=== PATIENT | male | born 1940 | race Caucasian/White ===

== ENCOUNTER → 2020-08-18 07:23 | Outpatient (CLI) | payer MEDICARE, SELFPAY ==
--- NOTE | ~2020-08-18 | MR_ITS ---
EXAMINATION: MR brain/brain stem wo con DATE: 08/18/2020 08:10 INDICATION: Memory loss. TECHNIQUE: Magnetic resonance imaging (MRI) of the brain and brainstem was performed without intraven ous contrast. Sequences included sagittal and axial T1-weighted FSE, axial diffusion-weighted FS EPI, axial T2*-weighted GRE, axial T2-weighted FLAIR Propeller, and axial T2-weighted Propeller. Apparent diffusion coefficient (ADC) maps were created. COMPARISON: None. FINDINGS: There are scattered areas of nonspecific increased T2-weighted signal intensity in the cere bral white matter, which is within normal limits for the patient's age. There is no intracranial hemo rrhage, acute infarction, or abnormal intracranial mass lesion. The ventricles are normal in size. Th ere is mild mucosal thickening in the ethmoid sinuses. The mastoid air cells are normal. There are li valdemar changes of ocular lens replacement surgeries. IMPRESSION: 1. Normal aging brain. Reviewed, dictated and finalized at location A. DEVELOPER CONTRACT IMPRESSION: 1. Normal aging brain.
== END ==
PROVIDERS: PCP Internal Medicine; Visit Provider Psychiatry & Neurology Neurology
DX: R41.3 Other amnesia (principal)
CPT/HCPCS: 70551

== ENCOUNTER 2022-05-22 10:33 | Outpatient (CLI) | payer MEDICARE, SELFPAY ==
--- NOTE | ~2022-05-22 | XR_ITS ---
XR knee RT 3V 05/22/2022 11:22 Indication: Chronic knee pain Procedure: 3 views right knee Comparison: No prior studies for comparison. Findings: There is moderate-severe tricompartment osteoarthritis of the right knee, most advanced in the medial compartment. No significant joint effusion. No acute fracture or traumatic malalignment. Impression: 1: Moderate-severe tricompartment osteoarthritis of the right knee. Reviewed, dictated and finalized at location A. Impression: 1: Moderate-severe tricompartment osteoarthritis of the right knee.
--- NOTE | ~2022-05-22 | XR_ITS ---
XR knee LT 3V 05/22/2022 11:22 Indication: Chronic left knee pain Procedure: 3 views left knee Comparison: No prior studies for comparison. Findings: There is severe tricompartment osteoarthritis of the left knee, most advanced in the medial compartment. There is an osteochondroma originating from the proximal aspect of the tibia posteriorl y. No significant joint effusion. Impression: 1: Severe tricompartment osteoarthritis of the left knee. 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 Reviewed, dictated and finalized at location A. Impression: 1: Severe tricompartment osteoarthritis of the left knee. 2: Exophytic osteochondroma originating from the posterior margin of the proxi mal tibial metaphysis.
--- NOTE | ~2022-05-22 | XR_ITS ---
XR sternum min 2V DATE: 05/22/2022 11:22 INDICATION: Chronic sternal pain TECHNIQUE: Lateral and oblique views COMPARISON: 01/17/2019 2 view chest FINDINGS: No sternal fracture or bone destruction is evident. Osteopenia. IMPRESSION: Osteopenia Reviewed, dictated and finalized at location B. IMPRESSION: Osteopenia
== END 2022-05-22 10:34 | disposition home or self-care (01) ==
LOC: ANHIMG 10:44
PROVIDERS: PCP Internal Medicine; Visit Provider Internal Medicine
DX: R07.89 Other chest pain (principal); M85.88 Other specified disorders of bone density and structure, other site; M17.0 Bilateral primary osteoarthritis of knee
CPT/HCPCS: 71120; 73562

== ENCOUNTER 2022-08-13 11:37 | Emergency (ER) | payer MEDICARE, SELFPAY ==
--- NOTE | ~2022-08-13 | XR_ITS ---
EXAMINATION: XR chest 2V DATE: 08/13/2022 12:30 INDICATION: Agitation. Bilateral lower limb pain. TECHNIQUE: PA and lateral views of the chest were obtained. COMPARISON: Chest radiograph dated 01/17/2019 FINDINGS: Stable appearance of eventration along the anterior aspect of both the left and right hemidiaphragm. Stable appearance of chronic linear discoid atelectasis/scarring in the right lower and left mid and lower lung zones. No new airspace opacities, pulmonary edema, pleural effusion or pneumothorax. Heart size is normal. Chronic mild anterior wedging of a few mid and lower thoracic vertebral bodies. A fe w old left rib fractures. IMPRESSION: 1. Stable appearance of mild scattered linear discoid atelectasis/scarring in the left mid and bilate ral lower lung zones. Reviewed, dictated and finalized at location A. S SERVICE ROUTE MANAGER IMPRESSION: 1. Stable appearance of mild scattered linear discoid atelectasis/scarring in t he left mid and bilateral lower lung zones.
[2022-08-13 11:37] VITALS: BP 143/82; PULSE 67; RESP 17; TEMP 37.2; O2SAT 97
[2022-08-13] MEDS: LORazepam INJ (*CRX) 2 MG/ML VIAL 0.5 MG IV PUSH (12:51)
[2022-08-13 12:59] LABS: Basophils Percent Auto 0.5 % (0.2-1.2); Eosinophils Absolute Auto 0.2 K/mm3 (0-0.3); Eosinophils Percent Auto 2.9 % (0-4.4); Hematocrit 43.7 % (42.0-52.0); Hemoglobin 14.5 g/dL (14.0-18.0); Immature Granulocyte Absolute 0.02 K/mm3 (0.00-0.031); Immature Granulocyte Percent A 0.4 % (0-0.5); Lymphocytes Absolute Auto 1.32 K/mm3 (0.9-3.2); Mean Corpuscular HGB Conc 33.2 g/dl (32-36); Mean Corpuscular Volume 99.3 fl (80-100); Mean Platelet Volume 8.8 fl (7.4-10.4); Monocytes Absolute Auto 0.6 K/mm3 (0.1-0.6); Monocytes Percent Auto 10.4 % (2.6-8.5); Neutrophils Absolute Auto 3.4 K/mm3 (1.3-6.7); Neutrophils Percent Auto 61.8 % (45.5-73.1); Platelet Count Result 181 k/mm3 (150-375); Red Cell Distribution Width 12.1 % (11.5-14.5); White Blood Count 5.5 K/mm3 (4.5-10.0)
[2022-08-13 13:01] LABS: Add Urine Microscopic? YES; Appearance Urine Clear (Clear); Bilirubin Urine Negative (Negative); Blood Urine Negative (Negative); Color Urine Light Yellow (Yellow); Glucose Urine UA Negative (Negative); Ketones Urine Trace mg/dL (Negative); Leukocyte Esterase Ur Trace LEU/UL (Negative); Nitrate Urine Negative (Negative); Protein Urine Negative (Negative); Specific Grav Ur >= 1.030 (1.001-1.035); Urobilinogen Urine 0.2 mg/dL (<2.0)
[2022-08-13 13:08] LABS: Amphetamine Screen Urine Negative (Negative); Barbiturate Screen Urine Negative (Negative); Benzodiazepines Screen Urine Positive (Negative); Cannabinoid Screen Urine Negative (Negative); Cocaine Screen Urine Negative (Negative); Methadone Screen Urine Negative (Negative); Opiate Screen Urine Negative (Negative); Phencyclidine Screen Urine Negative (Negative)
[2022-08-13 13:12] LABS: Mucus Urine Rare /lpf; Squamous Epithelial Cell Urine Rare /hpf (Few)
[2022-08-13 13:12] LABS: Alanine Aminotransferase 38 U/L (6-50); Albumin Level 3.9 g/dL (3.5-5.1); Alkaline Phosphatase 96 U/L (38-126); Anion Gap 5 mmol/L (8-16); Aspartate Amino Transferase 39 U/L (17-59); Bilirubin,Total 0.8 mg/dL (0.2-1.3); Blood Urea Nitrogen 22 mg/dL (9-20); Calcium 8.7 mg/dL (8.4-10.2); Carbon Dioxide 32 mmol/L (22-30); Chloride 102 mmol/L (98-107); Estimated CRCL calculation 52 ml/min; Estimated Glomerular Filt Rate > 60; Glucose 84 mg/dL (65-110); Potassium 3.8 mmol/L (3.4-5.0); Sodium 139 mmol/L (137-145)
[2022-08-13 13:14] LABS: Ethanol < 10 mg/dL (<10)
--- NOTE | 2022-08-13 13:27 | ED.GENADULT ---
HPI - General Adult General Chief complaint: Unspecified Stated complaint: VIOLENT WITH STAFF AND YELLING Time Seen by Provider: 08/13/22 11:58 History of Present Illness HPI narrative: Patient is an 82-year-old male who presents ER with agitation. He was at his new senior living that he was recently put in last week. Apparently he was shouting and had waived his pain and frustration. Unknown if he struck anybody. They recently started him on some Xanax to help control some agitation. Patient has dementia and cannot verbalize why he is here. Related Data Home Medications Medication Instructions Recorded Confirmed vit C 250 mg-vit E 90 mg-zinc 40 1 tablet PO BID 07/26/20 06/21/22 mg-copper 1 [id number]-[id number] capsule (PreserVision AREDS-2) cholecalciferol (vitamin D3) 25 25 mcg PO DAILY 11/02/21 06/21/22 mcg (1,000 unit) capsule mecobalamin (vitamin B12) 1,000 1,000 mcg sublingual .MWF 05/15/22 06/21/22 mcg disintegrating tablet,sublingual Allergies Allergy/AdvReac Type Severity Reaction Status Date / Time No Known Allergies Allergy Verified 06/19/22 14:01 Review of Systems Review of Systems: ROS unobtainable: Yes unobtainable due to mental status PMFSH Past Medical History Medical History (Updated 08/13/22 @ 15:32 by Walter Weinstein MD) Anxiety Depression Dyslipidemia Essential (primary) hypertension GERD (gastroesophageal reflux disease) 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, 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 Surgical History Surgical History H/O hernia repair Surgery done in December of 2018 Family History Family History Mother Family history of dementia Family history of malignant neoplasm of breast Father Family history of malignant neoplasm of urinary bladder Family history of heart disease in male family member before age 55 Family history of cardiovascular disease Family history of congestive heart failure Social History Social History Smoking packs per day: 0.5 Smoking cigarettes per day: 10.0 Years smoked: 5 Smoking pack-years: 2.50 Smoking status: Former smoker Smoking end date: 09/01/78 Alcohol intake: never Substance use: never Substance use type: does not use Lack of Transportation: No Lack of Food: Never True Current Housing: I Have Housing Concerned About Future Housing: No Difficulty Paying Gas/Electric Bills: No Difficulty Paying for Meds: No Currently Unemployed: No Education: Bachelor's Degree Difficulty w/ Childcare or Family Care: No Exam Narrative: GENERAL: Well-appearing, well-nourished, and in no acute distress. HEAD: Normocephalic, atraumatic. ENT: Mucous membranes moist. CHEST: Clear to auscultation.? No respiratory distress. HEART: Regular rate and rhythm.? Normal peripheral pulses. ABDOMEN: Soft, nontender, nondistended. EXTREMITIES: Normal range of motion.? No edema. SKIN: Warm, dry, no rash. NEURO: Alert and oriented x1-2. PSYCH: Normal mood and affect. Course Course Emergency Course: Informed brightly of results. Will give small amount of Ativan prescription for the care center. Patient will be getting a new PCP on 08/19/2022 and they will likely start a different mood stabilizer at that time if needed. Vital Signs Vital signs: Vital Signs Temperature 98.9 F 08/13/22 11:37 Pulse Rate 67 08/13/22 11:37 Respiratory Rate 17 08/13/22 11:37 Blood Pressure 143/82 H 08/13/22 11:37 Pulse Oximetry 97 08/13/22 11:37 Oxygen Delivery Room Air 08/13/22 11:37 Temperature 98.9 F 08/13/22 11:37 Pulse Rate 67 08/13/22 11:37 Respiratory Rate 17 08/13/22 11:37 Blood Pressure 143/82 H 08/13/22 11:37 Pulse Oximetry 97 08/13/22 11:37 Oxygen Deli
== END 2022-08-13 15:58 ==
PROVIDERS: Emergency Provider Emergency Medicine; PCP Internal Medicine
DX: G30.1 Alzheimer's disease with late onset (principal); F02.811 Dementia in other diseases classified elsewhere, unspecified severity, with agitation; E11.22 Type 2 diabetes mellitus with diabetic chronic kidney disease; I12.9 Hypertensive chronic kidney disease with stage 1 through stage 4 chronic kidney disease, or unspecified chronic kidney disease; N18.1 Chronic kidney disease, stage 1; E78.5 Hyperlipidemia, unspecified; F41.9 Anxiety disorder, unspecified; F32.A Depression, unspecified; M17.0 Bilateral primary osteoarthritis of knee; Z87.891 Personal history of nicotine dependence; R82.998 Other abnormal findings in urine; Z79.899 Other long term (current) drug therapy
CPT/HCPCS: 36415; 71046; 80053; 80307; 81001; 84443; 85025; 87086; 96374; 99284; J2060

== ENCOUNTER 2022-10-15 09:58 | Emergency (ER) | payer MEDICARE, SELFPAY ==
[2022-10-15] VITALS (12 sets, daily range): BP systolic 98–123; BP diastolic 59–70; PULSE 61–77; RESP 14–20; TEMP 36.6; O2SAT 94–100
--- NOTE | ~2022-10-15 | XR_ITS ---
EXAMINATION: XR chest 1V DATE: 10/15/2022 11:05 INDICATION: Weakness. Fall. TECHNIQUE: A single frontal view of the chest was obtained. COMPARISON: Chest 2 views 08/13/2022, CT abdomen and pelvis 01/15/2019 FINDINGS: The lung volumes are small. There is mild atelectasis at the lung bases. No pleural effusio n or pneumothorax. Calcified right hilar and mediastinal lymph nodes are consistent with old granulom atous disease. The heart size is normal. IMPRESSION: 1. Small lung volumes with mild atelectasis at the lung bases. Reviewed, dictated and finalized at location A. AL MARKETING MANAGER
--- NOTE | ~2022-10-15 | CT_ITS ---
EXAMINATION: CT brain wo con INDICATION: Transient alteration of awareness COMPARISON: MRI, 08/18/2020 TECHNIQUE: Standard unenhanced head CT. The dose-length product (DLP) was 681.00 mGy-cm. The mA was a djusted according to patient size. Iterative reconstruction technique was employed. FINDINGS: There is no acute intraparenchymal hemorrhage. No evidence of mass lesion. No evidence of a cute infarction. There is moderate periventricular and subcortical hypodensity probably related to sm all vessel ischemic disease. There is moderate prominence of the sulci and ventricles related to cere bral atrophy. Intracranial calcified cerebral atherosclerosis is noted. There are no extra-axial justin ections. There is no mass effect or midline shift. Changes in the globes are likely from ocular lens surgery. The visualized sinuses and mastoid air cells are well aerated. IMPRESSION: 1. No acute intracranial abnormality. 2. Age related findings. Reviewed, dictated and finalized at location L. TS MANAGEMENT INTERN
--- NOTE | ~2022-10-15 | CT_ITS ---
EXAMINATION: CT cervical spine wo con DATE: 10/15/2022 11:15 INDICATION: Transient alteration of awareness TECHNIQUE: Computed tomography (CT) of the cervical spine was performed without intravenous contrast. The dose-length product (DLP) was 466.36 mGy-cm. Automated exposure control and iterative reconstruc tion technique were employed. COMPARISON: None FINDINGS: There is 1 mm of anterolisthesis of C6 on C7. The vertebral body heights are maintained. Th ere is severe loss of intervertebral disc space height at C6-7. There is moderate loss of interverteb ral disc space height at C4-5 and C5-6. The odontoid process is intact. There is no fracture. There i s moderate to severe multilevel facet and uncovertebral joint osteoarthritis. IMPRESSION: 1. Moderate to severe cervical spondylosis without acute findings. Reviewed, dictated and finalized at location L. UTING SYSTEMS MECHANIC
--- NOTE | ~2022-10-15 | XR_ITS ---
EXAMINATION: XR hip RT 2V w AP pelvis DATE: 10/15/2022 11:05 INDICATION: Fall. TECHNIQUE: An anteroposterior view of the pelvis and 2 views of right hip were obtained. COMPARISON: None. FINDINGS: Bone alignment is normal. No fracture. There is moderate lumbar spondylosis. There is mild osteoarthritis of the hips. IMPRESSION: 1. Mild osteoarthritis of the hips. Reviewed, dictated and finalized at location A. PLATE PLYWOOD PRESS FEEDER
--- NOTE | 2022-10-15 10:11 | ECG_ITS ---
Measurements Intervals [place] Rate: 70 P: -24 [place]: 120 QRS: 1 QRSD: 104 T: 63 QT: 318 QTc: 343 Interpretive Statements SINUS RHYTHM NONSPECIFIC T-WAVE ABNORMALITY BASELINE ARTIFACT COMPARED TO ECG 01/08/2019 00:04:07 T-WAVE ABNORMALITY NOW PRESENT Electronically Signed On 10-15-2022 16:23:09 UNIT REACTOR OPERATOR by Corie Hummel M.D.
--- NOTE | 2022-10-15 10:42 | ED.RECABL ---
HPI - Recheck/Abnormal Lab/Rx General Chief Complaint: Recheck/Abnormal Lab/Rx Stated Complaint: low bp Time Seen by Provider: 10/15/22 10:11 Source: patient, EMS and RN notes reviewed Mode of arrival: EMS Limitations: dementia History of Present Illness HPI narrative: This is a 82 year old male that presents to the ER for generalized weakness. Reportedly was found on the floor at his nursing facility. They took his blood pressure and noted it was low so called EMS to have him evaluated. He has history of dementia and is not able to provide any further history. He has no focal complaints. Related Data Home Medications Medication Instructions Recorded Confirmed vit C 250 mg-vit E 90 mg-zinc 40 1 tablet PO BID 07/26/20 06/21/22 mg-copper 1 [id number]-[id number] capsule (PreserVision AREDS-2) cholecalciferol (vitamin D3) 25 25 mcg PO DAILY 11/02/21 06/21/22 mcg (1,000 unit) capsule mecobalamin (vitamin B12) 1,000 1,000 mcg sublingual .MWF 05/15/22 06/21/22 mcg disintegrating tablet,sublingual Allergies Allergy/AdvReac Type Severity Reaction Status Date / Time No Known Allergies Allergy Verified 06/19/22 14:01 Review of Systems Review of Systems: ROS unobtainable: Yes unobtainable due to medical condition (dementia) [facility] Past Medical History Medical History (Updated 10/15/22 @ 14:16 by Monae Echevarria PA-C) Anxiety Depression Dyslipidemia Essential (primary) hypertension GERD (gastroesophageal reflux disease) 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, 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 Surgical History Surgical History H/O hernia repair Surgery done in December of 2018 Family History Family History Mother Family history of dementia Family history of malignant neoplasm of breast Father Family history of malignant neoplasm of urinary bladder Family history of heart disease in male family member before age 55 Family history of cardiovascular disease Family history of congestive heart failure Social History Social History Smoking packs per day: 0.5 Smoking cigarettes per day: 10.0 Years smoked: 5 Smoking pack-years: 2.50 Smoking status: Former smoker Smoking end date: 09/01/78 Alcohol intake: never Substance use: never Substance use type: does not use Lack of Transportation: No Lack of Food: Never True Current Housing: I Have Housing Concerned About Future Housing: No Difficulty Paying Gas/Electric Bills: No Difficulty Paying for Meds: No Currently Unemployed: No Education: Bachelor's Degree Difficulty w/ Childcare or Family Care: No Exam Narrative: GENERAL: Elderly, well-nourished, and in no acute distress. HEAD: Normocephalic, atraumatic. EYES: PERRLA and EOMI. ENT: Nares clear, no rhinorrhea or epistaxis. Mucous membranes moist. Oropharynx without tonsillar hypertrophy exudate or other lesions. Bilateral TMs pearly stoner non-bulging NECK: Supple. No adenopathy or masses. CHEST: Clear to auscultation. No respiratory distress. No wheezes rales or rhonchi HEART: Regular rate and rhythm. No murmur heard. Normal peripheral pulses. ABDOMEN: Soft, nontender, nondistended, normal active bowel sounds. BACK: No midline spinal tenderness EXTREMITIES: Normal range of motion. No obvious deformity. 1+ pitting edema to the bilateral lower extremities without overlying erythema SKIN: Warm, dry, no rash. NEURO: No focal deficits. Alert and oriented x1. PSYCH: Normal mood and affect Course Course Emergency Course: Patient and family updated on work-up. I did recommend admission for further management of dehydration and UTI. Patient's daughter would prefer he be discharged back to facility. She feels this will be best for him mentally a
[2022-10-15 10:55] LABS: Basophils Percent Auto 0.4 % (0.2-1.2); Eosinophils Absolute Auto 0.1 K/mm3 (0-0.3); Eosinophils Percent Auto 3.1 % (0-4.4); Hematocrit 39.2 % (42.0-52.0); Hemoglobin 13.1 g/dL (14.0-18.0); Immature Granulocyte Absolute 0.02 K/mm3 (0.00-0.031); Immature Granulocyte Percent A 0.4 % (0-0.5); Immature Platelet Fraction Pct 4.2 % (0.9-11.2); Lymphocytes Absolute Auto 1.07 K/mm3 (0.9-3.2); Mean Corpuscular HGB Conc 33.4 g/dl (32-36); Mean Corpuscular Hemoglobin 33.5 pg (26-34); Mean Corpuscular Volume 100.3 fl (80-100); Mean Platelet Volume 10.5 fl (7.4-10.4); Monocytes Absolute Auto 0.6 K/mm3 (0.1-0.6); Monocytes Percent Auto 12.6 % (2.6-8.5); Neutrophils Absolute Auto 2.7 K/mm3 (1.3-6.7); Neutrophils Percent Auto 59.5 % (45.5-73.1); Platelet Count Result 96 k/mm3 (150-375); Red Blood Count 3.91 M/mm3 (4.6-6.20); White Blood Count 4.5 K/mm3 (4.5-10.0)
[2022-10-15 11:01] LABS: Creatine Kinase 44 U/L (55-170)
[2022-10-15 11:02] LABS: INR 1.2; Prothrombin Time 14.6 Seconds (11.1-14.7)
[2022-10-15 11:03] LABS: Alanine Aminotransferase 38 U/L (6-50); Albumin Level 2.9 g/dL (3.5-5.1); Alkaline Phosphatase 79 U/L (38-126); Anion Gap 3 mmol/L (8-16); Aspartate Amino Transferase 43 U/L (17-59); Bilirubin,Total 0.9 mg/dL (0.2-1.3); Blood Urea Nitrogen 37 mg/dL (9-20); Calcium 7.7 mg/dL (8.4-10.2); Carbon Dioxide 30 mmol/L (22-30); Chloride 108 mmol/L (98-107); Estimated Glomerular Filt Rate 53; Glucose 100 mg/dL (65-110); Partial Thromboplastin Time 24.8 SECONDS (22.3-36.8); Potassium 3.4 mmol/L (3.4-5.0); Sodium 141 mmol/L (137-145)
[2022-10-15 11:29] LABS: Influenza A QL RT-PCR Negative (Negative); Influenza B QL RT-PCR Negative (Negative); SARS-CoV-2 RNA PCR Negative
[2022-10-15] MEDS: SODIUM CHLORIDE 0.9% IV 1,000 ML 999 ML IV CONT (11:30)
[2022-10-15 12:45] LABS: Appearance Urine Clear (Clear); Bilirubin Urine Negative (Negative); Blood Urine Trace-intact (Negative); Color Urine Yellow (Yellow); Glucose Urine UA Negative (Negative); Ketones Urine 1+ mg/dL (Negative); Leukocyte Esterase Ur Trace LEU/UL (Negative); Nitrate Urine Negative (Negative); Protein Urine Negative (Negative); Specific Grav Ur >= 1.030 (1.001-1.035)
[2022-10-15 12:57] LABS: Add Urine Microscopic? YES; Mucus Urine Rare /lpf; Squamous Epithelial Cell Urine Rare /hpf (Few)
== END 2022-10-15 14:50 ==
PROVIDERS: Emergency Provider Physician Assistant
DX: N39.0 Urinary tract infection, site not specified (principal); E86.0 Dehydration; D69.6 Thrombocytopenia, unspecified; Z20.822 Contact with and (suspected) exposure to COVID-19; G30.1 Alzheimer's disease with late onset; F02.80 Dementia in other diseases classified elsewhere, unspecified severity, without behavioral disturbance, psychotic disturbance, mood disturbance, and anxiety; E78.5 Hyperlipidemia, unspecified; E11.22 Type 2 diabetes mellitus with diabetic chronic kidney disease; I12.9 Hypertensive chronic kidney disease with stage 1 through stage 4 chronic kidney disease, or unspecified chronic kidney disease; N18.1 Chronic kidney disease, stage 1; K21.9 Gastro-esophageal reflux disease without esophagitis; M17.0 Bilateral primary osteoarthritis of knee; F41.9 Anxiety disorder, unspecified; F32.A Depression, unspecified; Z87.891 Personal history of nicotine dependence; M16.0 Bilateral primary osteoarthritis of hip; R94.31 Abnormal electrocardiogram [ECG] [EKG]; M47.812 Spondylosis without myelopathy or radiculopathy, cervical region
CPT/HCPCS: 36415; 70450; 71045; 72125; 73502; 80053; 81001; 82550; 83605; 85025; 85055; 85610; 85730; 87086; 87636; 93005; 96361; 96365; 99284; J0696; J7030

== ENCOUNTER 2022-11-03 14:44 | Emergency (ER) | payer MEDICARE, SELFPAY ==
[2022-11-03] VITALS (15 sets, daily range): BP systolic 76–129; BP diastolic 40–65; PULSE 72–90; RESP 16–24; TEMP 36.2; O2SAT 95–100
--- NOTE | ~2022-11-03 | CT_ITS ---
EXAMINATION: CT brain wo con INDICATION: Head injury COMPARISON: 10/15/2022 TECHNIQUE: Standard unenhanced head CT. The dose-length product (DLP) was 681.00 mGy-cm. The mA was a djusted according to patient size. Iterative reconstruction technique was employed. FINDINGS: There is no acute intraparenchymal hemorrhage. No evidence of mass lesion. No evidence of a cute infarction. There is moderate periventricular and subcortical hypodensity probably related to sm all vessel ischemic disease. There is moderate prominence of the sulci and ventricles related to cere bral atrophy. Intracranial calcified cerebral atherosclerosis is noted. There are no extra-axial justin ections. There is no mass effect or midline shift. Changes in the globes are likely from ocular lens surgery. The visualized sinuses and mastoid air cells are well aerated. IMPRESSION: 1. No acute intracranial abnormality. 2. Age related findings. Reviewed, dictated and finalized at location F. ANIC'S ASSISTANT
--- NOTE | ~2022-11-03 | XR_ITS ---
EXAMINATION: XR hip LT 2V w AP pelvis INDICATION: Left hip pain TECHNIQUE: AP view the pelvis and two views of the left hip are obtained. COMPARISON: None available FINDINGS: Bone alignment is normal. There is no fracture. The soft tissues are unremarkable. There is mild osteoarthritis of the hips. IMPRESSION: 1. No acute osseous abnormality. Reviewed, dictated and finalized at location F. ERCIAL ROOFING ESTIMATOR
--- NOTE | ~2022-11-03 | XR_ITS ---
EXAMINATION: XR chest 1V portable INDICATION: Weakness TECHNIQUE: Portable AP chest at 1600 hours COMPARISON: 10/15/2022 FINDINGS: There is mild atelectasis of the lung bases. No pleural effusion or pneumothorax. The cardi omediastinal silhouette is normal. There is moderate osteoarthritis of the shoulders. IMPRESSION: 1. Mild atelectasis of the lung bases. Reviewed, dictated and finalized at location F. SCAPING MANAGER
--- NOTE | 2022-11-03 15:28 | ECG_ITS ---
Measurements Intervals [place] Rate: 77 P: -43 [place]: 142 QRS: 10 QRSD: 98 T: 59 QT: 378 QTc: 429 Interpretive Statements SINUS RHYTHM BORDERLINE ST-T WAVE ABNORMALITY- HIGH LATERAL LEADS BASELINE ARTIFACT- I, II, AVR, AVL, AVF, V1-V2, V5-V6 BORDERLINE ECG COMPARED TO ECG 10/15/2022 10:03:42 NO SIGNIFICANT CHANGES Electronically Signed On 11-04-2022 8:17:37 COMMUNICATIONS BILLING ANALYST by Erick Hernández D.O.
[2022-11-03] MEDS: SODIUM CHLORIDE 0.9% IV 1,000 ML 999 ML IV CONT ×2 (16:48→18:35)
--- NOTE | 2022-11-03 17:19 | ED.GENADULT ---
HPI - General Adult General Chief complaint: Fall Stated complaint: fall Time Seen by Provider: 11/03/22 15:17 History of Present Illness HPI narrative: Patient is an 82-year-old male who presents ER after having a fall at his [facility]. He was found on the ground on his left side. Patient is unable to provide history due to his dementia. He is oriented x1 at baseline. It is unknown whether patient hit his head or lost consciousness. No deformity to the lower extremities. Related Data Home Medications Medication Instructions Recorded Confirmed vit C 250 mg-vit E 90 mg-zinc 40 1 tablet PO BID 07/26/20 06/21/22 mg-copper 1 dx-qrfcvi-wpcune capsule (PreserVision AREDS-2) cholecalciferol (vitamin D3) 25 25 mcg PO DAILY 11/02/21 06/21/22 mcg (1,000 unit) capsule mecobalamin (vitamin B12) 1,000 1,000 mcg sublingual .MWF 05/15/22 06/21/22 mcg disintegrating tablet,sublingual Allergies Allergy/AdvReac Type Severity Reaction Status Date / Time No Known Allergies Allergy Verified 06/19/22 14:01 Review of Systems Review of Systems: ROS unobtainable: Yes unobtainable due to mental status PMFSH Past Medical History Medical History (Updated 11/03/22 @ 18:33 by Walter Weinstein MD) Anxiety Depression Dyslipidemia Essential (primary) hypertension GERD (gastroesophageal reflux disease) 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, 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 Surgical History Surgical History H/O hernia repair Surgery done in December of 2018 Family History Family History Mother Family history of dementia Family history of malignant neoplasm of breast Father Family history of malignant neoplasm of urinary bladder Family history of heart disease in male family member before age 55 Family history of cardiovascular disease Family history of congestive heart failure Social History Social History Smoking packs per day: 0.5 Smoking cigarettes per day: 10.0 Years smoked: 5 Smoking pack-years: 2.50 Smoking status: Former smoker Smoking end date: 09/01/78 Alcohol intake: never Substance use: never Substance use type: does not use Lack of Transportation: No Lack of Food: Never True Current Housing: I Have Housing Concerned About Future Housing: No Difficulty Paying Gas/Electric Bills: No Difficulty Paying for Meds: No Currently Unemployed: No Education: Bachelor's Degree Difficulty w/ Childcare or Family Care: No Exam Narrative: GENERAL: Well-appearing, well-nourished, and in no acute distress. HEAD: Normocephalic, atraumatic. EYES: PERRL and EOMI. ENT: Mucous membranes moist. CHEST: Clear to auscultation. No respiratory distress. HEART: Regular rate and rhythm. Normal peripheral pulses. ABDOMEN: Soft, nontender, nondistended,. EXTREMITIES: Normal range of motion. No edema. SKIN: Warm, dry, no rash. NEURO: Alert and oriented x1. Course Course Emergency Course: Patient's blood pressure has been low but he is keenly awake and alert and is moving around. He is quite demented. After liter of fluid his blood pressure normalized. Lab work unremarkable. He will be given a second liter as his urine was dark and had a lot of casts in it. Family has been contacted and informed that there is no evidence of traumatic injury. He will be transferred back to the [facility]. Vital Signs Vital signs: Vital Signs Temperature 97.2 F L 11/03/22 14:54 Pulse Rate 90 11/03/22 14:54 Respiratory Rate 18 11/03/22 14:54 Blood Pressure 80/54 L 11/03/22 14:54 Pulse Oximetry 99 11/03/22 14:54 Oxygen Delivery Room Air 11/03/22 14:54 Temperature 97.2 F L 11/03/22 14:54 Pulse Rate 86 11/03/22 15:48 Respiratory
[2022-11-03 17:40] LABS: Appearance Urine Cloudy (Clear); Bacteria Urine None Seen /hpf; Bilirubin Urine 2+ (Negative); Blood Urine Negative (Negative); Color Urine Dark Yellow (Yellow); Glucose Urine UA Negative (Negative); Ketones Urine 2+ mg/dL (Negative); Leukocyte Esterase Ur 1+ LEU/UL (Negative); Mucus Urine Present /lpf; Nitrate Urine Negative (Negative); Non Pathogenic Casts >20; Protein Urine 1+ mg/dL (Negative); Specific Grav Ur 1.026 (1.001-1.035); Squamous Epithelial Cell Urine Occasional /hpf (Few)
[2022-11-03 18:01] LABS: Basophils Percent Auto 0.5 % (0.2-1.2); Eosinophils Absolute Auto 0.1 K/mm3 (0-0.3); Eosinophils Percent Auto 0.6 % (0-4.4); Hematocrit 39.9 % (42.0-52.0); Immature Granulocyte Absolute 0.04 K/mm3 (0.00-0.031); Immature Granulocyte Percent A 0.5 % (0-0.5); Lymphocytes Absolute Auto 1.13 K/mm3 (0.9-3.2); Lymphocytes Percent Auto 14.2 % (18.3-44.2); Mean Corpuscular HGB Conc 32.6 g/dl (32-36); Mean Corpuscular Hemoglobin 33.1 pg (26-34); Mean Corpuscular Volume 101.5 fl (80-100); Mean Platelet Volume 9.3 fl (7.4-10.4); Monocytes Absolute Auto 0.8 K/mm3 (0.1-0.6); Monocytes Percent Auto 9.7 % (2.6-8.5); Neutrophils Absolute Auto 5.9 K/mm3 (1.3-6.7); Neutrophils Percent Auto 74.5 % (45.5-73.1); Platelet Count Result 170 k/mm3 (150-375); Red Blood Count 3.93 M/mm3 (4.6-6.20); Red Cell Distribution Width 14.7 % (11.5-14.5)
[2022-11-03 18:02] LABS: Add Urine Microscopic? YES
[2022-11-03 18:12] LABS: Lactic Acid Reflex 1.8 mmol/L (0.7-2.0)
[2022-11-03 18:16] LABS: Alanine Aminotransferase 21 U/L (6-50); Alkaline Phosphatase 96 U/L (38-126); Anion Gap 5 mmol/L (8-16); Aspartate Amino Transferase 27 U/L (17-59); Bilirubin,Total 1.3 mg/dL (0.2-1.3); Blood Urea Nitrogen 26 mg/dL (9-20); Carbon Dioxide 31 mmol/L (22-30); Chloride 106 mmol/L (98-107); Estimated CRCL calculation 44 ml/min; Estimated Glomerular Filt Rate 58; Glucose 79 mg/dL (65-110); Lipase 128 U/L (23-300); Potassium 3.3 mmol/L (3.4-5.0); Sodium 142 mmol/L (137-145)
--- NOTE | 2022-11-03 18:20 | PC.NURSE ---
updated of the pt on POC
--- NOTE | 2022-11-03 18:22 | PC.NURSE ---
ptis a hard stick, attempted many times for labs. called lab for aid, eventually able to acquire labs
--- NOTE | 2022-11-03 19:27 | PC.NURSE ---
Assumed care of pt at this time. This RN entered room and found pts IV removed and fluids emptied on the floor. Linen changed. Pt repositioned.
== END 2022-11-03 20:34 ==
PROVIDERS: Emergency Provider Emergency Medicine; PCP Nurse Practitioner Family
DX: F41.9 Anxiety disorder, unspecified (principal); F32.A Depression, unspecified; E78.5 Hyperlipidemia, unspecified; I10 Essential (primary) hypertension; K21.9 Gastro-esophageal reflux disease without esophagitis; E11.22 Type 2 diabetes mellitus with diabetic chronic kidney disease; N18.1 Chronic kidney disease, stage 1; M19.90 Unspecified osteoarthritis, unspecified site; R82.998 Other abnormal findings in urine
CPT/HCPCS: 36415; 70450; 71045; 73502; 80053; 81001; 83605; 83690; 85025; 87086; 87088; 93005; 96360; 96361; 99284; J7030

== ENCOUNTER 2022-11-06 20:03 | Observation (INO) | payer MEDICARE, SELFPAY ==
--- NOTE | ~2022-11-06 | XR_ITS ---
EXAMINATION: XR chest 1V portable Exam Date/Time: 11/06/2022 20:40 UNIT COORDINATOR HISTORY: lethargy Comparison: 11/03/2022. RESULT: Lines, tubes, and devices: None. Lungs and pleura: Lordotic view with low volumes. Crowding. Streaky bibasilar opacities likely repre senting scar/atelectasis. Cardiomediastinal silhouette: Stable. Other: No acute osseous or upper abdominal finding. IMPRESSION: Exam limited by positioning and low lung volumes. Within those constraints, no definite acute cardiop ulmonary process. Reviewed, dictated and finalized at location K. COORDINATOR IMPRESSION: Exam limited by positioning and low lung volumes. Within those constraints, no definite acute cardiopulmonary process.
[2022-11-06 20:03] VITALS: BP 114/54; PULSE 87; RESP 20; TEMP 36.6; O2SAT 100
[2022-11-06 20:27] LABS: Basophils Percent Auto 0.3 % (0.2-1.2); Hematocrit 41.5 % (42.0-52.0); Hemoglobin 13.8 g/dL (14.0-18.0); Immature Granulocyte Absolute 0.07 K/mm3 (0.00-0.031); Immature Granulocyte Percent A 0.6 % (0-0.5); Lymphocytes Absolute Auto 1.12 K/mm3 (0.9-3.2); Lymphocytes Percent Auto 8.8 % (18.3-44.2); Mean Corpuscular HGB Conc 33.3 g/dl (32-36); Mean Corpuscular Hemoglobin 33.7 pg (26-34); Mean Corpuscular Volume 101.5 fl (80-100); Mean Platelet Volume 9.7 fl (7.4-10.4); Monocytes Absolute Auto 1.2 K/mm3 (0.1-0.6); Monocytes Percent Auto 9.2 % (2.6-8.5); Neutrophils Absolute Auto 10.3 K/mm3 (1.3-6.7); Neutrophils Percent Auto 81.1 % (45.5-73.1); Platelet Count Result 172 k/mm3 (150-375); Red Blood Count 4.09 M/mm3 (4.6-6.20); Red Cell Distribution Width 15.5 % (11.5-14.5); White Blood Count 12.7 K/mm3 (4.5-10.0)
[2022-11-06 20:40] VITALS: BP 106/61; PULSE 82; RESP 16; O2SAT 98
[2022-11-06 20:40] LABS: Alanine Aminotransferase 23 U/L (6-50); Albumin Level 3.2 g/dL (3.5-5.1); Alkaline Phosphatase 102 U/L (38-126); Anion Gap 4 mmol/L (8-16); Aspartate Amino Transferase 32 U/L (17-59); Bilirubin,Total 1.4 mg/dL (0.2-1.3); Blood Urea Nitrogen 33 mg/dL (9-20); Calcium 8.3 mg/dL (8.4-10.2); Carbon Dioxide 32 mmol/L (22-30); Chloride 107 mmol/L (98-107); Estimated CRCL calculation 33 ml/min; Estimated Glomerular Filt Rate 42; Glucose 114 mg/dL (65-110); Potassium 3.2 mmol/L (3.4-5.0); Sodium 143 mmol/L (137-145)
--- NOTE | 2022-11-06 20:51 | ED.GENADULT ---
HPI - General Adult General Chief complaint: Unspecified Stated complaint: LETHARGY, DECREASED PO INTAKE Time Seen by Provider: 11/06/22 20:19 History of Present Illness HPI narrative: Patient is an 82-year-old male with a history of dementia presenting with decreased p.o. intake. Coming from a nursing facility. He has reportedly had decreased oral intake and increased fatigue. He has been sleeping more than normal. He was actually seen here a few days ago and was found to be dehydrated. On arrival, patient looks dry but he denies any complaints. He is ANO x1 which is his baseline. Denies any pain. Related Data Home Medications Medication Instructions Recorded Confirmed cholecalciferol (vitamin D3) 25 25 mcg PO DAILY 11/02/21 11/07/22 mcg (1,000 unit) capsule PreserVision AREDS-2 1 cap PO BID 11/07/22 11/07/22 divalproex 250 mg tablet,delayed 250 mg PO TID 11/07/22 11/07/22 release hydrochlorothiazide 12.5 mg tablet 25 mg PO DAILY 11/07/22 11/07/22 memantine 10 mg tablet 10 mg PO BID 11/07/22 11/07/22 quetiapine 50 mg tablet 50 mg PO TID 11/07/22 11/07/22 Allergies Allergy/AdvReac Type Severity Reaction Status Date / Time No Known Allergies Allergy Verified 06/19/22 14:01 Review of Systems Review of Systems: ROS unobtainable: Yes unobtainable due to mental status (Baseline dementia) PMFSH Past Medical History Medical History Anxiety Depression Dyslipidemia Essential (primary) hypertension GERD (gastroesophageal reflux disease) 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, 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 Surgical History Surgical History H/O hernia repair Surgery done in December of 2018 Family History Family History Mother Family history of dementia Family history of malignant neoplasm of breast Father Family history of malignant neoplasm of urinary bladder Family history of heart disease in male family member before age 55 Family history of cardiovascular disease Family history of congestive heart failure Social History Social History Smoking packs per day: 0.5 Smoking cigarettes per day: 10.0 Years smoked: 5 Smoking pack-years: 2.50 Smoking status: Former smoker Smoking end date: 09/01/78 Alcohol intake: never Substance use: unknown Substance use type: does not use Lack of Transportation: No Lack of Food: Never True Current Housing: I Have Housing Concerned About Future Housing: No Difficulty Paying Gas/Electric Bills: No Difficulty Paying for Meds: No Currently Unemployed: No Education: Bachelor's Degree Difficulty w/ Childcare or Family Care: No Spiritual care concerns: No Exam Narrative: GENERAL: Well-appearing, well-nourished, and in no acute distress. HEAD: Normocephalic, atraumatic. EYES: PERRLA and EOMI. ENT: Nares clear, no rhinorrhea or epistaxis. Mucous membranes dry NECK: Supple. CHEST: Clear to auscultation. No respiratory distress. HEART: Regular rate and rhythm ABDOMEN: Soft, nontender, nondistended EXTREMITIES: Normal range of motion. No edema. SKIN: Warm, dry, no rash. NEURO: No focal deficits. Alert and oriented x1. Moving all extremities spontaneously PSYCH: Normal mood and affect. Course Vital Signs Vital signs: Vital Signs Temperature 97.9 F 11/06/22 20:03 Pulse Rate 87 11/06/22 20:03 Respiratory Rate 20 11/06/22 20:03 Blood Pressure 114/54 L 11/06/22 20:03 Pulse Oximetry 100 11/06/22 20:03 Oxygen Delivery Room Air 11/06/22 20:03 Temperature 97.1 F L 11/07/22 14:00 Pulse Rate 91 11/07/22 14:00 Respiratory Rate 19 11/07/22 14:00 Blood Pressure 97/47 L 11/07/22 14:00 Pulse Oximetry 95 11/07/22 14
[2022-11-06] MEDS: SODIUM CHLORIDE 0.9% IV 1,000 ML 999 ML IV CONT ×2 (21:05→22:54)
--- NOTE | 2022-11-06 21:07 | PC.NURSE ---
Pt brought to ED from [facility]. [facility]itentiary staff wanted him evaluated because he has not been eating or drinking for the past 4 days and he has been more tired than usual. He has a history of alzheimer's and is at his mental status baseline. Blood sugar en route was 185. Pt us alert to only himself. He has no complaints, but begins yelling any time he's touched which limits assessment.
[2022-11-06 21:31] VITALS: BP 108/67; PULSE 77; RESP 19
[2022-11-06 21:46] VITALS: BP 102/67; PULSE 77; RESP 19
[2022-11-06 21:51] LABS: Appearance Urine Cloudy (Clear); Bacteria Urine 1+ /hpf; Bilirubin Urine 2+ (Negative); Blood Urine Negative (Negative); Color Urine Dark Yellow (Yellow); Glucose Urine UA Negative (Negative); Ketones Urine 1+ mg/dL (Negative); Leukocyte Esterase Ur 2+ LEU/UL (Negative); Nitrate Urine Positive (Negative); Non Pathogenic Casts >20; Protein Urine 2+ mg/dL (Negative); RBC Urine 0-2 /hpf (0-2); Specific Grav Ur 1.027 (1.001-1.035); Squamous Epithelial Cell Urine Occasional /hpf (Few); WBC Urine 51-100 /hpf; pH Urine 5.5 (5.0-9.0)
[2022-11-06 21:55] LABS: Mucus Urine Present /lpf
[2022-11-06 21:56] LABS: Add Urine Microscopic? YES
[2022-11-06 22:01] VITALS: PULSE 79; RESP 16
--- NOTE | 2022-11-06 22:32 | PM.IMHP ---
H&P: HPI History of Present Illness Date/Time: 11/06/22 22:32 Chief Complaint: Altered mental status Narrative: This is an 82-year-old male with past medical history significant for Alzheimer's disease, dyslipidemia, hypertension, gastroesophageal risk disease, type 2 diabetes mellitus, chronic kidney disease. Patient was brought to the emergency room due to concerns of altered mental status, lethargy, poor per orally intake. Patient is unable to provide any history due to dementia noted reverberation. Preliminary workup was significant for a urinalysis showed multiple WBCs present. A CT of the head was reported as: FINDINGS: There is no acute intraparenchymal hemorrhage. No evidence of mass lesion. No evidence of acute infarction. There is moderate periventricular and subcortical hypodensity probably related to small vessel ischemic disease. There is moderate prominence of the sulci and ventricles related to cerebral atrophy. Intracranial calcified cerebral atherosclerosis is noted. There are no extra-axial collections. There is no mass effect or midline shift. Changes in the globes are likely from ocular lens surgery. The visualized sinuses and mastoid air cells are well aerated. IMPRESSION: 1. No acute intracranial abnormality. 2. Age related findings. A chest x-ray was reported as: IMPRESSION: Exam limited by positioning and low lung volumes. Within those constraints, no definite acute cardiopulmonary process. Patient tested negative for influenza type A, influenza type B and COVID-19 Patient has been admitted for further evaluation management and treatment. 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 Surgical History Surgical History H/O hernia repair Surgery done in December of 2018 Family History Family History Mother Family history of dementia Family history of malignant neoplasm of breast Father Family history of malignant neoplasm of urinary bladder Family history of heart disease in male family member before age 55 Family history of cardiovascular disease Family history of congestive heart failure Social History Social History Smoking packs per day: 0.5 Smoking cigarettes per day: 10.0 Years smoked: 5 Smoking pack-years: 2.50 Smoking status: Former smoker Smoking end date: 09/01/78 Alcohol intake: never Substance use: unknown Substance use type: does not use Lack of Transportation: No Lack of Food: Never True Current Housing: I Have Housing Concerned About Future Housing: No Difficulty Paying Gas/Electric Bills: No Difficulty Paying for Meds: No Currently Unemployed: No Education: Bachelor's Degree Difficulty w/ Childcare or Family Care: No Spiritual care concerns: No Meds Home Medications and Allergies Home Medications Medication Instructions Recorded Confirmed Type cholecalciferol (vitamin D3) 25 25 mcg PO DAILY 11/02/21 11/07/22 History mcg (1,000 unit) capsule donepezil 10 mg tablet See Rx Instructions .Route 03/19/22 11/07/22 Rx .COMPLEX #90 tabs olmesartan 20 mg tablet (Benicar) 20 mg PO DAILY #90 tabs 04/08/22 11/07/22 Rx pravastatin 40 mg tablet See Rx Instructions .Route 04/08/22 11/07/22 Rx .COMPLEX #90 tabs verapamil 240 mg tablet,extended 240 mg PO BID #180 tabs 04/24/22 11/07/22 Rx release tramadol 50 mg tabl
[2022-11-06 22:57] VITALS: BP 103/65; PULSE 80; RESP 20; O2SAT 99
[2022-11-06 23:50] VITALS: BMI 28.5
[2022-11-07] VITALS (7 sets, daily range): BP systolic 96–109; BP diastolic 47–71; PULSE 84–91; RESP 18–20; TEMP 36.2–36.3; O2SAT 95–100; BMI 28.5
--- NOTE | 2022-11-07 03:29 | PC.NURSE ---
Spoke with Dr. Randall at this time to patient's skin assessment with a red/excoriated, yeast-like scrotum and groin. New orders received for a wound consult and Nystatin powder BID
[2022-11-07] MEDS: QUEtiapine FUMARATE 25 MG TABLET 50 MG PO ×3 (09:16→17:34)
[2022-11-07] MEDS: OPTI-GEN TAB 1 TABLET PO ×2 (09:16→17:34)
[2022-11-07] MEDS: DONEPEZIL HCL 10 MG TABLET BY MOUTH (09:16)
[2022-11-07] MEDS: MEMANTINE 10 MG TABLET PO ×2 (09:16→22:08)
[2022-11-07] MEDS: PRAVASTATIN SODIUM 20 MG TABLET 40 MG BY MOUTH (09:17)
[2022-11-07] MEDS: VERAPAMIL HCL ER 240 MG TABLET.ER PO (09:17)
[2022-11-07] MEDS: CHOLECALCIFEROL 1,000 UNITS TABLET 1000 UNITS PO (09:17)
[2022-11-07] MEDS: DIVALPROEX SODIUM DR 250 MG TABEC PO ×3 (09:17→17:34)
[2022-11-07] MEDS: TOLNAFTATE 1% POWDER 45 GM BTL 1 APPLIC TOPICAL ×2 (09:18→22:18)
[2022-11-07 12:16] LABS: Alanine Aminotransferase 18 U/L (6-50); Albumin Level 2.6 g/dL (3.5-5.1); Alkaline Phosphatase 71 U/L (38-126); Anion Gap 1 mmol/L (8-16); Aspartate Amino Transferase 26 U/L (17-59); Bilirubin,Total 1.2 mg/dL (0.2-1.3); Blood Urea Nitrogen 32 mg/dL (9-20); Calcium 7.8 mg/dL (8.4-10.2); Carbon Dioxide 31 mmol/L (22-30); Chloride 109 mmol/L (98-107); Estimated CRCL calculation 48 ml/min; Estimated Glomerular Filt Rate > 60; Glucose 91 mg/dL (65-110); Sodium 141 mmol/L (137-145)
[2022-11-07 12:51] LABS: Basophils Percent Auto 0.4 % (0.2-1.2); Eosinophils Percent Auto 0.5 % (0-4.4); Hematocrit 35.9 % (42.0-52.0); Immature Granulocyte Absolute 0.04 K/mm3 (0.00-0.031); Immature Granulocyte Percent A 0.5 % (0-0.5); Lymphocytes Absolute Auto 1.27 K/mm3 (0.9-3.2); Lymphocytes Percent Auto 17.1 % (18.3-44.2); Mean Corpuscular HGB Conc 33.4 g/dl (32-36); Mean Corpuscular Hemoglobin 32.8 pg (26-34); Mean Corpuscular Volume 98.1 fl (80-100); Mean Platelet Volume 10.8 fl (7.4-10.4); Monocytes Absolute Auto 0.7 K/mm3 (0.1-0.6); Monocytes Percent Auto 9.3 % (2.6-8.5); Neutrophils Absolute Auto 5.3 K/mm3 (1.3-6.7); Neutrophils Percent Auto 72.2 % (45.5-73.1); Platelet Count Result 138 k/mm3 (150-375); Red Blood Count 3.66 M/mm3 (4.6-6.20); Red Cell Distribution Width 15.3 % (11.5-14.5); White Blood Count 7.4 K/mm3 (4.5-10.0)
[2022-11-07 13:18] LABS: Acanthocytes 1+ (NORMAL); Schistocytes Rare (NORMAL)
--- NOTE | 2022-11-07 14:19 | PCOTNOTE ---
Spoke [facility] where patient was living who reports patient was dependent with all ADLs for the past few months except for donning shoes, did not understand what using the bathroom is . Spoke with ordering hospitalist Liberty Hirsch who is agreeable to OT not completing an evaluation on this date due to patient being at functional baseline. Will cancel OT orders at this time.
--- NOTE | 2022-11-07 15:20 | PM.IMPN ---
Progress Note: A&P Assessment and Plan (1) UTI (urinary tract infection): Code(s): N39.0 - Urinary tract infection, site not specified Status: Acute Assessment and Plan: urinalysis is abnormal patient unable to indicate symptoms mild leukocytosis on presentation has resolved following Rocephin continue IV Rocephin while awaiting urine culture results. Tailor accordingly (2) Essential (primary) hypertension: Code(s): I10 - Essential (primary) hypertension Status: Acute Assessment and Plan: blood pressures have been soft since admission. seems to be slowly improving. Last BP 97/47 hold hydrochlorothiazide, olmesartan, and verapamil limit narcotics to avoid hypotension monitor blood pressure trends closely (3) Late onset Alzheimer disease: Code(s): G30.1 - Alzheimer's disease with late onset; F02.80 - Dementia in other diseases classified elsewhere, unspecified severity, without behavioral disturbance, psychotic disturbance, mood disturbance, and anxiety Status: Acute Assessment and Plan: Patient with severe dementia that has been progressing with overall functional and mental decline continue memantine, donepezil. continue Seroquel and Depakote for behavioral disturbance family is considering hospice care. Appreciate care coordination assistance (4) Type 2 diabetes mellitus with stage 1 chronic kidney disease: Qualifiers: Diabetes mellitus [facility] insulin use: without advice nurse use Qualified Code(s): E11.22 - Type 2 diabetes mellitus with diabetic chronic kidney disease; N18.1 - Chronic kidney disease, stage 1 Code(s): E11.22 - Type 2 diabetes mellitus with diabetic chronic kidney disease; N18.1 - Chronic kidney disease, stage 1 Status: Acute Assessment and Plan: A1c is 5.0 no need for further monitoring (5) Acute kidney injury superimposed on CKD: Code(s): N17.9 - Acute kidney failure, unspecified; N18.9 - Chronic kidney disease, unspecified Status: Acute Assessment and Plan: creatinine 1.6 on presentation creatinine has normalized following IV fluids, 1.1 today IV fluids discontinued as patient is tolerating p.o. intake monitor BMP Subjective Date/time seen: 11/07/22 15:20 Interval history: date of service: 11/07/2022 José Brito is an 82-year-old male with a history of hypertension, type 2 diabetes mellitus, Alzheimer's disease, anxiety, and depression who is seen in follow-up for UTI. The patient is not able to provide any reliable history. He is sitting up in bed eating lunch. He appears comfortable. he is conversational, however speech is often nonsensical and he cannot answer questions appropriately. discussed with patient's nurse who spoke with patient's family. She states family reports that he is at baseline. They have been in communication with his nursing facility to consider hospice care in the upcoming near future Review of Systems Review of Systems: All systems reviewed & are unremarkable except as noted in HPI and below ROS unobtainable: Yes unobtainable due to mental status (Dementia) Exam Narrative: General: well-nourished, well-appearing 82-year-old male, sitting up in bed eating lunch, comfortable, NARD Neuro: awake, alert and oriented to self only, speech clear, no focal neuro deficits noted HEENMT: normocephalic, atraumatic, EOMI, sclerae anicteric Respiratory: clear to auscultation bilaterally, nonlabored breathing Cardio: regular rate, regular rhythm with S1-S2 Abdomen: nondistended, normoactive bowel sounds, soft, nontender to palpation Extremities: no edema, erythema, or tenderness to palpation, DP pulses 2+ bilaterally Skin: no rashes or lesions, warm and dry Psych: appropriate mood and affect, judgment and insight poor Objective Data Vital Signs Vital Signs: Vital Signs - 24 hr 11/06/22 20:03 11/06/22 20:40
[2022-11-07] MEDS: POTASSIUM CHLORIDE 20 MEQ TABLET 40 MEQ PO (17:36)
[2022-11-08 06:32] LABS: Anion Gap 1 mmol/L (8-16); Blood Urea Nitrogen 33 mg/dL (9-20); Carbon Dioxide 31 mmol/L (22-30); Chloride 110 mmol/L (98-107); Estimated CRCL calculation 48 ml/min; Estimated Glomerular Filt Rate > 60; Glucose 84 mg/dL (65-110); Magnesium 2.1 mg/dL (1.6-2.3); Potassium 3.2 mmol/L (3.4-5.0); Sodium 142 mmol/L (137-145)
[2022-11-08 06:35] LABS: Hematocrit 35.9 % (42.0-52.0); Hemoglobin 11.7 g/dL (14.0-18.0); Mean Corpuscular HGB Conc 32.6 g/dl (32-36); Mean Corpuscular Hemoglobin 33.1 pg (26-34); Mean Corpuscular Volume 101.7 fl (80-100); Platelet Count Result 147 k/mm3 (150-375); Red Blood Count 3.53 M/mm3 (4.6-6.20); Red Cell Distribution Width 15.8 % (11.5-14.5); White Blood Count 6.1 K/mm3 (4.5-10.0)
[2022-11-08] MEDS: DONEPEZIL HCL 10 MG TABLET BY MOUTH (09:18)
[2022-11-08] MEDS: CHOLECALCIFEROL 1,000 UNITS TABLET 1000 UNITS PO (09:18)
[2022-11-08] MEDS: QUEtiapine FUMARATE 25 MG TABLET 50 MG PO ×2 (09:18→11:59)
[2022-11-08] MEDS: VERAPAMIL HCL ER 240 MG TABLET.ER PO (09:18)
[2022-11-08] MEDS: DIVALPROEX SODIUM DR 250 MG TABEC PO ×2 (09:18→11:59)
[2022-11-08] MEDS: OPTI-GEN TAB 1 TABLET PO (09:18)
[2022-11-08] MEDS: MEMANTINE 10 MG TABLET PO (09:18)
[2022-11-08] MEDS: PRAVASTATIN SODIUM 20 MG TABLET 40 MG BY MOUTH (09:19)
[2022-11-08] MEDS: TOLNAFTATE 1% POWDER 45 GM BTL 1 APPLIC TOPICAL (09:19)
--- NOTE | 2022-11-08 13:00 | PM.DS ---
DS: Admitting Diagnosis Discharge Date 11/08/22 1300 Admitting Diagnosis UTI DS: Discharge Diagnosis Discharge Diagnosis (1) UTI (urinary tract infection): Code(s): N39.0 - Urinary tract infection, site not specified Status: Acute Assessment and Plan: urinalysis is abnormal patient unable to indicate symptoms mild leukocytosis on presentation has resolved following Rocephin continue IV Rocephin while awaiting urine culture results. Tailor accordingly Nursing called [facility], and it was reported >100,[address] patient on Amoxicillin, for further treatment (2) Essential (primary) hypertension: Code(s): I10 - Essential (primary) hypertension Status: Acute Assessment and Plan: blood pressures have been soft since admission. seems to be slowly improving. Last BP 97/47 hold hydrochlorothiazide, olmesartan, and verapamil limit narcotics to avoid hypotension monitor blood pressure trends closely (3) Late onset Alzheimer disease: Code(s): G30.1 - Alzheimer's disease with late onset; F02.80 - Dementia in other diseases classified elsewhere, unspecified severity, without behavioral disturbance, psychotic disturbance, mood disturbance, and anxiety Status: Acute Assessment and Plan: Patient with severe dementia that has been progressing with overall functional and mental decline continue memantine, donepezil. continue Seroquel and Depakote for behavioral disturbance family is considering hospice care. Appreciate care coordination assistance (4) Type 2 diabetes mellitus with stage 1 chronic kidney disease: Qualifiers: Diabetes mellitus adjunct faculty for medical terminology insulin use: without custodial use Qualified Code(s): E11.22 - Type 2 diabetes mellitus with diabetic chronic kidney disease; N18.1 - Chronic kidney disease, stage 1 Code(s): E11.22 - Type 2 diabetes mellitus with diabetic chronic kidney disease; N18.1 - Chronic kidney disease, stage 1 Status: Acute Assessment and Plan: A1c is 5.0 no need for further monitoring (5) Acute kidney injury superimposed on CKD: Code(s): N17.9 - Acute kidney failure, unspecified; N18.9 - Chronic kidney disease, unspecified Status: Acute Assessment and Plan: creatinine 1.6 on presentation creatinine has normalized following IV fluids, 1.1 today IV fluids discontinued as patient is tolerating p.o. intake monitor BMP BUN/Cr stable 33/1.10 DS: Summary Hospital Course Hospital Course: patient is a 82 year male with a past medical history of significant for Alzheimer's disease, hyperlipidemia, Alzheimer, HTN, GERD, Type 2 DM, CKD who presented with acute metabolic encephalopathy, poor per orally intake. UA upon arrival noted to be infectious appearing. Patient was started on IV ceftriaxone. Urine cultures still not resulted however [facility] has been contacted and stated that the urine does appear to be growing greater than 100,[address] patient on amoxicillin for now and will continue to follow urine culture and further changes will be made. Spoke with family who wishes that the patient be discharged and hospice be initiated at this time. Currently patient is A&O x1. He did state that he was not in any pain and he felt comfortable. Currently he denies any chest pain, shortness a breath, nausea, vomiting, diarrhea or constipation. A complete review of systems is unreliable due to patient's mental status. Currently patient is stable for discharge per labs and vital signs. Patient is being discharged [facility] and will be on hospice after that. Family has agreed and is ready for patient to be discharged. Spoke with ID pharmacist who recommended on amoxicillin however patient can be changed to Zyvox if needed. Will change pain medicine from tramadol [place] for that reason. If needed change patient will also have to stop
[2022-11-08] MEDS: AMOXICILLIN 500 MG CAPSULE PO (15:10)
[2022-11-08 15:39] LABS: EDCOVIDSCREEN Negative (Negative)
== END 2022-11-08 17:32 | disposition hospice, inpatient (51) ==
LOC: ANHED 20:19 → ANH3MEDSUR 11-07 00:20
PROVIDERS: Chiropractor; Emergency Medicine; Admitting Provider Internal Medicine; Emergency Provider Emergency Medicine; PCP Nurse Practitioner Family; Visit Provider Physician Assistant
DX: N39.0 Urinary tract infection, site not specified (principal); B95.2 Enterococcus as the cause of diseases classified elsewhere; I12.9 Hypertensive chronic kidney disease with stage 1 through stage 4 chronic kidney disease, or unspecified chronic kidney disease; E11.22 Type 2 diabetes mellitus with diabetic chronic kidney disease; N18.1 Chronic kidney disease, stage 1; G30.1 Alzheimer's disease with late onset; F02.80 Dementia in other diseases classified elsewhere, unspecified severity, without behavioral disturbance, psychotic disturbance, mood disturbance, and anxiety; N17.9 Acute kidney failure, unspecified; Z20.822 Contact with and (suspected) exposure to COVID-19; R63.0 Anorexia; R53.83 Other fatigue; R62.7 Adult failure to thrive; Z68.28 Body mass index [BMI] 28.0-28.9, adult; G93.41 Metabolic encephalopathy; E87.6 Hypokalemia; R41.82 Altered mental status, unspecified; F41.9 Anxiety disorder, unspecified; F32.A Depression, unspecified; E78.5 Hyperlipidemia, unspecified; K21.9 Gastro-esophageal reflux disease without esophagitis; M17.0 Bilateral primary osteoarthritis of knee; Z79.899 Other long term (current) drug therapy; Z87.891 Personal history of nicotine dependence; Z82.49 Family history of ischemic heart disease and other diseases of the circulatory system
CPT/HCPCS: 36415; 71045; 80048; 80053; 81001; 83036; 83735; 85025; 85027; 87086; 87147; 87181; 87186; 87426; 96360; 96361; 96374; 97162; 99285; A9270; C9803; G0378; J0696; J7030